=== PATIENT | female | born 1970 | race Caucasian/White ===

== ENCOUNTER 2017-01-16 13:56 | Emergency (ER) | payer BC ==
[~2017-01-16 13:56] MED LIST: FLONASE NAS; SINGULAIR1 PO
== END 2017-01-16 15:12 | disposition home or self-care (01) ==
LOC: ER 13:56
DX: R05 Cough (principal); J45.909 Unspecified asthma, uncomplicated; K21.9 Gastro-esophageal reflux disease without esophagitis; Z79.899 Other long term (current) drug therapy
CPT/HCPCS: 71020; 96372; 99283